=== PATIENT | male | born 1985 | race African-American/Black ===

== ENCOUNTER 2021-04-12 11:33 | Emergency (ER) | payer OTHER ==
[~2021-04-12 11:33] MED LIST: AMOXICILLIN500 MG PO; AUGMENTIN 875-1 EACH PO; BIAXIN500 MG PO; PREVACID30 M1 PO; ROBAXIN750 MG PO; VOLTAREN **OUT50 MG PO
== END 2021-04-12 13:02 | disposition home or self-care (01) ==
LOC: FER 11:33
DX: J06.9 Acute upper respiratory infection, unspecified (principal); F17.200 Nicotine dependence, unspecified, uncomplicated; Z20.822 Contact with and (suspected) exposure to COVID-19
CPT/HCPCS: 71045; U0002